=== PATIENT | male | born 1955 | race Two or more races ===

== ENCOUNTER → 2019-05-06 | Outpatient (CLI) | payer OTHER ==
[~2019-05-06] VITALS: Ht 175.3 cm; Wt 85.9 kg
[~2019-05-06] MED LIST: FENTANYL PF 100 MCG/2ML ONE; FLUMAZENIL 0.1 MG/1 ML, 5ML ONE; LIDOCAINE-MPF 1%, 5ML ONE; MIDAZOLAM 1 MG/ML, 5ML ONE; NALOXONE 1 MG/ML, 2ML ONE; SODIUM CHLORIDE 0.9% 1,000 ML IV SCH
[2019-05-06 08:25] VITALS: BP 158/81
[2019-05-06 08:54] LABS: INTERNATIONAL NORMALIZED RATIO 0.98 (0.93-1.1); PROTHROMBIN TIME 10.3 Seconds (9.6-11.5)
== END | disposition home or self-care (01) ==
LOC: OUT 07:29
PROVIDERS: ATTEND Internal Medicine
DX: K74.0 Hepatic fibrosis (principal); E11.9 Type 2 diabetes mellitus without complications; Z79.84 Long term (current) use of oral hypoglycemic drugs
CPT/HCPCS: 36415; 47000; 76942; 85610; 88307; 88313; 99156; 99157; J2250; J3010; J2310